=== PATIENT | male | born 1955 | race Caucasian/White ===

== ENCOUNTER 2021-07-29 05:30 | Day surgery (SDC) | payer OTHER ==
[~2021-07-29] VITALS: Ht 188 cm; Wt 72.1 kg
[2021-07-29] VITALS (12 sets, daily range): BP systolic 119–165; BP diastolic 63–90; PULSE 62–103; TEMP 97–98.5
[2021-07-29 06:34] LABS: HEMOGLOBIN 13.1 g/dl (13.5-18.0); MEAN CELL VOLUME 94 fl (80.0-100.0); MEAN CORPUSCULAR HEMOGLOBIN 34 pg (27.0-31.0); MEAN CORPUSCULAR HGB CONC 36 g/dl (33.0-37.0); MEAN PLATELET VOLUME 9.9 fl (7.4-10.4); PLATELET COUNT 288 K/mm3 (130-400); RED BLOOD COUNT 3.89 M/mm3 (4.20-5.60)
[2021-07-29 06:43] LABS: INR 1.1 (0.8-3.0); PROTHROMBIN TIME 11.7 SECONDS (9.7-12.8)
[2021-07-29 06:45] LABS: HEMATOCRIT 36.4 % (42.0-52.0)
[2021-07-29 07:11] LABS: ALBUMIN 3.8 gm/dL (3.5-5.0); BILIRUBIN,TOTAL 0.5 mg/dL (0.0-1.0); CALCIUM 9.3 mg/dL (8.4-10.2); CREATININE, serum 0.88 (0.66-1.25); POTASSIUM 4.2 mmol/L (3.4-5.0); TOTAL PROTEIN 6.6 gm/dL (6.4-8.2)
[2021-07-29] MEDS ORDERED: NORCO 325 MG-51 TAB PO (09:42)
--- NOTE | 2021-07-29 12:18 | NUR ---
PT TO ROOM 344 WITH REPORT FROM SHIN COURTNEY.PT IS DROWSEY BUT AROUSES TO VERBAL. ROBOTIC INCISIONS CDI WITH SWIFTSET. SCROTAL SUPPORT AND GAUZE TO SCROTUM.
--- NOTE | 2021-07-29 22:01 | NUR ---
Patient very confused and oriented to self only. Able to tell his name and date of . Patient Scrotum support in place. Scant amount of bloody drainage noted. Patient using urinal to urinate. Bloody urine output noted. Patient reports pain upon urination. PRN pain med given for pain. VS stable. Call light within reach. Bed alarms on. Will continue to monitor.
[2021-07-30 02:57] VITALS: BP 139/67; PULSE 70; TEMP 98.5
--- NOTE | 2021-07-30 05:00 | NUR ---
Patient slept very little, confused, agitated, and trying to get up from bed frequently. Patient able to stand up and ambulate with unsteady gait.1 person assist needed for ambulation. Patient using urinal to void x3 over the night. Blood dripping from the tip of penis upon urination. Called Dr. Lucas around 22:00 pm and updated. Per Dr. Lucas, as long as patient urinating well, it is ok. We will monitor for now. Jock strap for scrotum support was moderately saturated with blood from left scrotum james drain. removed Jock strap and applied abdominal pad/dry gauze over the scrotum area and covered with incontinent brief. 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 PRN pain med given Q 4-5 hr for pain control. Call light within reach. Bed alarms on. Fall precaution maintained.
--- NOTE | 2021-07-30 08:00 | NUR ---
Patient set off the bed alarm trying to get out of bed. Nurse assisted the patient back into bed and reoriented the patient. Alert, but confused. VSS. IV CDI. Drain left scrotum intact. Nurse ordered breakfast for the patient. No further needs expressed. Call light within reach. Bed alarm on. door left open and room close to the nurses station
[2021-07-30 11:22] VITALS: BP 125/69; PULSE 77; TEMP 97.6
--- NOTE | 2021-07-30 15:30 | NUR ---
[place] drain removed from the left scrotum and patient tolerated well. Several 4x4 applied and jock strap placed on the patient and brief placed as well. Patient assisted with getting dressed by nursing staff and assisted to the recliner waiting on sister to leaf size picker. IV removed, tip intact, gauze and coban applied. Chair alarm on and call light within reach
[2021-07-30 16:00] VITALS: BP 144/87; PULSE 88; TEMP 97.4
--- NOTE | 2021-07-30 16:15 | NUR ---
Nurse came back to the nurses station and was informed that the patient fell out of the recliner and the chair alarm going off. Another RN found the patient on the floor sitting on his buttucks and assisted the patient back to the recliner. VSS. Patient stated that he was not in pain and did not hit his head. Dr Noyola notified. Nursing staff assisted the patient to the wheelchair and taken to the ER entrance. Nurse went over discharge paperwork with the sister and informed the sister about the patients fall. No further needs expressed
== END 2021-07-30 16:15 | disposition home or self-care (01) ==
LOC: SDCO 05:30 → SURG 11:55 → SDCO 07-30 16:15
PROVIDERS: Surgery
DX: K40.90 Unilateral inguinal hernia, without obstruction or gangrene, not specified as recurrent (principal); N43.3 Hydrocele, unspecified; N43.42 Spermatocele of epididymis, multiple; F03.90 Unspecified dementia, unspecified severity, without behavioral disturbance, psychotic disturbance, mood disturbance, and anxiety; Z87.891 Personal history of nicotine dependence
CPT/HCPCS: OP; A4314; C1781; J0690; J1100; J2060; J2405; J2704; J3010; J7120